=== PATIENT | male | born 1980 | race Caucasian/White ===

== ENCOUNTER 2016-07-04 18:58 | Emergency (ER) | payer OTHER ==
[~2016-07-04] VITALS: Ht 177.8 cm; Wt 99.8 kg
[~2016-07-04 18:58] MED LIST: ADVAIR 250-501 EACH INH; ALBUTEROL SULFAT3 M1 INH; AMOXICILLIN500 MG PO; ATROVENT 0.02%2.5 ML INH; AZITHROMYCIN250 MG PO; PREDNICOT20 MG PO; PREDNISONE 10MG10 M1 PO; PREDNISONE 20MG20 MG PO; PREDNISONE10 MG PO; PROAIR HFA8.5 GM INH; PROTONIX 40MG T40 MG PO; ZITHROMAX Z-PA250 M1 PO
[2016-07-04 19:06] VITALS: BP 176/89
[2016-07-04] MEDS ORDERED: NORCO 5-325 TA1 EACH PO (19:48)
[2016-07-04] MEDS ORDERED: AUGMENTIN 875-1 EACH PO (19:48)
--- NOTE | 2016-07-04 19:48 | ED THROAT/DENTAL COMPLAINT ---
History of Present Illness General Chief Complaint: Sore Throat, Dental Pain Stated Complaint: TOOTH ACHE Source: patient, old records Exam Limitations: no limitations Vital Signs & Intake/Output Vital Signs & Intake/Output Vital Signs Date Time Temp Pulse Resp B/P Pulse O2 O2 Flow FiO2 Ox Delivery Rate 07/04 1906 98.7 74 18 176/89 96 Room Air Room Air Allergies Coded Allergies: MDX - Ibuprofen (IBUPROFEN) (Severe, DIFFICULTY BREATHING 08/21/14) Reconcile Medications Albuterol Sulfate (Proair Hfa) 0.09 MG/Actuation MANDI 2 PUFF INH Q4P PRN ASTHMA (Reported) Albuterol Sulfate 3 ML NEB 3 ML INH Q4HR PRN WHEEZING Amoxicillin/Potassium Clav (Augmentin 875-125 Tablet) 875 MG-125 MG TABLET 1 TAB PO BID DENTAL FLUTICASONE/SALMETEROL (Advair 250-50 Diskus) 250 MCG-50 MCG/DOSE BLST.W.DEV 1 PUF INH BID ASTHMA (Reported) Hydrocodone/Acetaminophen ([place] 5-325 Tablet) 5 MG-325 MG TABLET 1 TAB PO BID PRN BREAKTHROUGH PAIN Triage Note: TRIAGE: 36 Y/O MALE PRESNETS C/O 03/13 RIGHT SIDED DENTAL PAIN. REPORTS PAIN X 3 DAYS - "THE SWELLING IS CREEPING UP MY FACE. I'M SCARED." "I WAS TRYING TO WAIT UNTIL TOMORROW TO GO TO THE DENTIST." Triage Nurses Notes Reviewed? yes Onset: Abrupt Duration: day(s): (2), constant Timing: recent history Injury Environment: home Severity: moderate Severity Numbers: 8 Modifying Factors: Worsens With: eating. Associated Symptoms: denies HPI: 36-year-old with history of 2 day history of right upper dental pain. He states he has a history of a cracked tooth however states that has been aggravating him more so since yesterday. He denies any known injury or trauma he's been taking extra strength Tylenol without improvement. Symptoms are worse with palpation and eating. He states that he has had history of similar pain in the past as resolved on its own. He states since last night he is noticed swelling to his face. He denies change in his voice ear pain congestion fever chills chest pain shortness of breath. There are no other modifying factors or associated symptoms pain is 8 out of 10 in mild to moderate and aching and throbbing Past History Travel History Traveled to [place] past 21 day No Medical History Any Pertinent Medical History? see below for history Respiratory: asthma History of MRSA: No History of VRE: No History of CDIFF: No Pneumonia Vaccine: 06/03/12 Influenza Vaccine: 04/03/13 Tetanus Vaccine: 06/06/13 Surgical History Surgical History: non-contributory Psychosocial History Who do you live with Spouse Services at Home Oxygen What is your primary language Tajik Tobacco Use: Never used ETOH Use: denies use Illicit Drug Use: denies illicit drug use Family History Family History, If Any: MOTHER (HTN, HLD). FH: liver disease Relation not specified for: FH: COPD (chronic obstructive pulmonary disease) FH: myocardial infarction Hx Contributory? No Review of Systems Review of Systems Constitutional: Reports: no symptoms, see HPI. All Other Systems: Reviewed and Negative Comments Review of systems: See HPI, All other systems negative. Constitutional, no chills no fever, no malaise HEENT: No visual changes no sore throat no congestion Cardiovascular: No chest pain , no palpitation Skin, no rashes, no change in skin Respiratory: No dyspnea no cough no sputum GI: No nausea no vomiting, no diarrhea Muscle skeletal: No joint pain, no back pain, no neck pain, Neurologic: No numbness no headache Psych: No stress Heme/endocrine: No bruising no bleeding Immunology: No lymphadenopathy Physical Exam Physical Exam General Appearance: well developed/nourished, no apparent distress, alert, awake Mouth/Throat: dental tenderness Comments: Well-developed well-nourished patient in no apparent distress. Head/Face: Atraumatic, no maxillary/frontal sinus tenderness, minimal right- sidedfacial swelling Eyes: PERRL, EOMI Ear:External auditory canals clear, no erythema, no FB. Nose: atraumatic.Normal inspection Throat: Moist mucous membranes.Pharynx normal. No pharyngeal erythema/exudate seen. No stridor/drooling or assymetry. No swelling or edema. Dental tenderness Poor dentition no uvular displacement no gingival abscess Neck: Supple, no lymphadenopathy, FROM Back: FROM, Nontender Cardiovascular: Regular rate and rhythms no murmurs Respiratory: No respiratory distress. Patient speaking in full complete sentences. Breath sounds clear to auscultation bilaterally: NO W/R/R Extremities: full range of motion Neuro: Alert and oriented x3 Skin: Warm & dry;No appreciable rash on exposed skin Psych: Mood affect normal, normal memory normal judgment. Core Measures ACS in differential dx? No Severe Sepsis Present: No Septic Shock Present: No Progress Differential Diagnosis: carious tooth, epiglottitis, Ludwigs angina, odontogenic abscess, kristine-tonsillar abscess, stomatitis/gingivitis, strep pharyngitis, tooth fracture Plan of Care: advised f/[facility] list. rx for augmentin and norco provided pt speaking in full sentences minimal facial sweling noted, imaging deferred they feel comfortable with plan cleared for dc Departure Departure Time of Disposition: 1945 Disposition: HOME OR SELF CARE Condition: Stable Clinical Impression Primary Impression: Toothache Referrals: NADINE BRAVO,SARAHI (PCP/Family) Referred to [facility] as new patient No Additional Instructions: NORCO FOR BREAKTHROUGH PAIN- THIS IS A NARCOTIC AND WILL MAKE YOU DROWSY. NO DRIVING OR DRINKING ALCOHOL WHILE TAKING. AUGMENTIN DIRECTED. FOLLOW UP WITH DENTIST THIS WEEK. Departure Forms: Customer Survey General Discharge Information Prescriptions: Current Visit Scripts Hydrocodone/Acetaminophen ([place] 5-325 Tablet) 1 TAB PO BID PRN BREAKTHROUGH PAIN #10 TAB Amoxicillin/Potassium Clav (Augmentin 875-125 Tablet) 1 TAB PO BID #14 TAB ED Attending Observation Initial Observation Note: I have seen and personally examined STOUTEVE on 07/04/16 at 1954. I agree with the current emergency department documentation. The disposition (admission or discharge) is uncertain at this time, he needs a period of observation for the following reason(s): The ED Nurse caring for this patient has been personally informed as to what the patient is being observed for.
== END 2016-07-04 20:00 ==
LOC: ERH 18:58
DX: K08.89 Other specified disorders of teeth and supporting structures (principal)

== ENCOUNTER 2016-09-11 16:30 | Emergency (ER) | payer OTHER ==
[~2016-09-11] VITALS: Ht 177.8 cm; Wt 91.2 kg
[~2016-09-11 16:30] MED LIST changes: +AUGMENTIN 875-1 EACH PO; +NORCO 5-325 TA1 EACH PO
--- NOTE | 2016-09-11 17:02 | ED DYSPNEA/ASTHMA COMPLAINT ---
History of Present Illness General Chief Complaint: Dyspnea (COPD, CHF, Other) Stated Complaint: SOB, COUGH, 1 HR Source: patient Exam Limitations: no limitations Vital Signs & Intake/Output Vital Signs & Intake/Output Vital Signs Date Time Temp Pulse Resp B/P Pulse O2 O2 Flow FiO2 Ox Delivery Rate 09/11 1844 96 Nasal 1.0L Cannula 09/11 1840 96.9 88 18 129/74 98 Nasal 1.0L Cannula 09/11 1707 94 Nasal 2.0L Cannula 09/11 1636 97.1 114 24 145/93 94 Room Air Allergies Coded Allergies: ibuprofen (Severe, DIFFICULTY BREATHING 09/11/16) Reconcile Medications Albuterol Sulfate (Proair Hfa) 90 MCG HFA.AER.AD 2 PUF INH Q4H PRN ASTHMA ( Reported) Albuterol Sulfate 2.5 MG/3 ML (0.083 %) VIAL.NEB 1 Vial INH/DARIUS PRN ASTHMA ( Reported) Albuterol Sulfate 2.5 MG/3 ML (0.083 %) VIAL.NEB 1 Vial INH/DARIUS Q4P PRN DYSPNEA Fluticasone/Salmeterol (Advair 250-50 Diskus) 250 MCG-50 MCG/DOSE BLST.W.DEV 1 PUF INH BID ASTHMA (Reported) Levofloxacin (Levaquin) 750 MG TABLET 1 TAB PO DAILY PNEUMONIA Loratadine (Claritin) 10 MG TABLET 1 TAB PO DAILY ALLERGIES (Reported) Methylprednisolone. (Medrol) 4 MG TAB.DS.PK 1 DP PO AD INFLAMMATION 6 on day 1 then reduce by one tablet daily until gone Triage Note: PT TO ED C/O COUGH, CHEST HEAVINESS X 1 HOUR. H/O ASTHMA. USED PROAIR WITH NO RELIEF. RA SATS 945%. PT FEELS LIKE HE CAN'T CATCH HIS BREATH. Triage Nurses Notes Reviewed? yes Onset: Gradual Duration: day(s): (few) Timing: recent history Severity: moderate Activities at Onset: none Associated Symptoms: cough, chest pain, yellow sputum HPI: 36 year old male with hisotry of recently diagnosed asthma after multilobar pneumonia which required admission a few years ago. He reports asthma symptoms over the last few days which has required using his rescue inhlaer multiple times a day. No fever or chills. His sputum turned yellow today. He is a former smoker. Past History Travel History Traveled to [place] past 21 day No Medical History Any Pertinent Medical History? see below for history Respiratory: asthma, pneumonia History of MRSA: No History of VRE: No History of CDIFF: No Pneumonia Vaccine: 06/03/12 Influenza Vaccine: 04/03/13 Tetanus Vaccine: 06/06/13 Surgical History Surgical History: non-contributory Psychosocial History Who do you live with Spouse Services at Home Oxygen What is your primary language Maltese Tobacco Use: Quit >30 days ago ETOH Use: denies use Illicit Drug Use: denies illicit drug use Family History Family History, If Any: MOTHER (HTN, HLD). FH: liver disease Relation not specified for: FH: COPD (chronic obstructive pulmonary disease) FH: myocardial infarction Hx Contributory? No Review of Systems Review of Systems Constitutional: Denies: chills, fever. EENTM: Reports: no symptoms. Respiratory: Reports: cough, short of breath, sputum production. Cardiovascular: Reports: chest pain. Denies: palpitations. GI: Denies: abdominal pain, nausea, vomiting. Genitourinary: Reports: no symptoms. Musculoskeletal: Reports: no symptoms. Skin: Reports: no symptoms. Neurological/Psychological: Reports: no symptoms. Hematologic/Endocrine: Denies: bruising, bleeding, polyuria, polydipsia. Immunologic/Allergic: Denies: splenectomy. All Other Systems: Reviewed and Negative Physical Exam Physical Exam General Appearance: well developed/nourished, alert, awake, moderate distress Head: atraumatic, normal appearance Eyes: Bilateral: normal appearance, PERRL, EOMI. Ears, Nose, Throat: normal pharynx, normal ENT inspection, hearing grossly normal Neck: normal inspection, supple, full range of motion Respiratory: decreased breath sounds, wheezing, respiratory distress Cardiovascular: regular rate/rhythm Peripheral Pulses: 2+ radial (R), 2+ radial (L) Gastrointestinal: normal bowel sounds, soft, non-tender Extremities: normal inspection, normal capillary refill, normal range of motion, no edema Neurologic/Psych: no motor/sensory deficits, awake, alert, oriented x 3 Skin: intact, normal color, warm/dry Core Measures ACS in differential dx? No Severe Sepsis Present: No Septic Shock Present: No Progress Differential Diagnosis: asthma, pulmonary embolism, pneumonia Plan of Care: Orders Procedure Date/time Status RT ED ORDERS 09/11 1835 Active RAPID VIRAL INFLUENZA A 03/11 1701 Complete Microbiology 09/11 1729 NASOPHARYN: Influenza Virus A & B Rapid Smear - COMP cxr, duoneb, prednisone ordered. patient feeling better after prednisone, 2 duonebs. cxr shows some chronic changes. patient with risk for developing pneumonia. ambulatory with sat 95% which is self reported baseline. will take levaquin and follow up with pulmonary this week. D/W Dr. Vegas. (GERRY BRAVO,JESSIE) Diagnostic Imaging: Viewed by Me: Radiology Read. Discussed w/RAD: Radiology Read. CXR Impression: PATIENT: EVE STOUT PRESENT AGE: 36 PATIENT ACCOUNT NO: [id number] : 82 LOCATION: [facility] ORDERING PHYSICIAN: JESSIE GARRETT MD SERVICE DATE: 09/11/16 EXAM TYPE: RAD - XRY -CHEST XRAY, PA AND LATERAL EXAMINATION: XR CHEST CLINICAL INFORMATION: Cough and shortness of breath for 3 days. Yellow sputum. COMPARISON: Chest x-ray dated 10/17/2014, 08/21/2014. TECHNIQUE: PA and lateral views of the chest were obtained. FINDINGS: The cardiomediastinal silhouette is within normal limits in size. Slight prominence of the pulmonary reymundo is again seen, unchanged. Lungs bilaterally are symmetrically hyperinflated with flattening of the hemidiaphragms, increase in retrosternal airspace and thickening of the central airways, consistent with obstructive lung disease. There are very subtle increased reticular densities seen on the lateral view in the lower lobe, suspicious for subtle pneumonitis. This is, however, poorly localized on the frontal view. Remainder of lungs unremarkable. No effusion or pneumothorax is seen. Bony structures are unremarkable. IMPRESSION: Obstructive lung disease with subtle reticular densities seen in the lower lobe on lateral view only, increased in density compared to 08/21/2014, suspicious for subtle pneumonitis in the clinical setting provided. Follow-up PA and lateral view of the chest post treatment is recommended to document resolution of findings. DICTATED BY: KATLYN CRAWFORD MD DATE/TIME DICTATED:09/11/161801 SULFONATION EQUIPMENT OPERATOR:RODNEY DATE/TIME TRANSCRIBED:09/11/161801 CONFIDENTIAL, DO NOT COPY WITHOUT APPROPRIATE AUTHORIZATION. <Electronically signed in Other Vendor System> SIGNED BY: KATLYN CRAWFORD MD 09/11/16 1810 Initial ED EKG: none Departure Departure Time of Disposition: 1911 Disposition: HOME OR SELF CARE Condition: Stable Clinical Impression Primary Impression: Asthma exacerbation Referrals: SARAHI MCCOY MD (PCP/Family) Additional Instructions: Take the medrol dose pack, levaquin and albuterol nebulizer as directed. Follow up with Dr. Vegas in the office early this week. Return to the ER over the next two days for any worsening symptoms. Departure Forms: Customer Survey General Discharge Information Prescriptions: Current Visit Scripts Methylprednisolone. (Medrol) 1 DP PO AD #1 DP 6 on day 1 then reduce by one tablet daily until gone Levofloxacin (Levaquin) 1 TAB PO DAILY #7 TAB Albuterol Sulfate 1 Vial INH/DARIUS Q4P PRN DYSPNEA #1 BOX Critical Care Note Critical Care Note Critical Care Time: non-applicable
[2016-09-11] MEDS ORDERED: ALBUTEROL2.5 MG/3 M INH/SOL ×2 (17:29→19:14)
[2016-09-11] MEDS ORDERED: CLARITIN10 M1 PO (17:30)
--- NOTE | 2016-09-11 18:10 | RADIOLOGY REPORT ---
EXAMINATION: XR CHEST CLINICAL INFORMATION: Cough and shortness of breath for 3 days. Yellow sputum. COMPARISON: Chest x-ray dated 10/17/2014, 08/21/2014. TECHNIQUE: PA and lateral views of the chest were obtained. FINDINGS: The cardiomediastinal silhouette is within normal limits in size. Slight prominence of the pulmonary reymundo is again seen, unchanged. Lungs bilaterally are symmetrically hyperinflated with flattening of the hemidiaphragms, increase in retrosternal airspace and thickening of the central airways, consistent with obstructive lung disease. There are very subtle increased reticular densities seen on the lateral view in the lower lobe, suspicious for subtle pneumonitis. This is, however, poorly localized on the frontal view. Remainder of lungs unremarkable. No effusion or pneumothorax is seen. Bony structures are unremarkable. IMPRESSION: Obstructive lung disease with subtle reticular densities seen in the lower lobe on lateral view only, increased in density compared to 08/21/2014, suspicious for subtle pneumonitis in the clinical setting provided. Follow-up PA and lateral view of the chest post treatment is recommended to document resolution of findings.
[2016-09-11 18:41] VITALS: BP 129/74
[2016-09-11] MEDS ORDERED: MEDROL4 M2 PO (19:14)
[2016-09-11] MEDS ORDERED: LEVAQUIN750 M1 PO (19:14)
== END 2016-09-11 19:19 ==
LOC: ERH 16:30
DX: J45.901 Unspecified asthma with (acute) exacerbation (principal); R07.89 Other chest pain; Z87.891 Personal history of nicotine dependence
CPT/HCPCS: 1263; 1395; 87804; 87804-59

== ENCOUNTER 2017-10-12 01:55 | Emergency (ER) | payer OTHER ==
[~2017-10-12] VITALS: Ht 177.8 cm; Wt 102.1 kg
[~2017-10-12 01:55] MED LIST changes: +ALBUTEROL2.5 MG/3 M INH/SOL; +CLARITIN10 M1 PO; +LEVAQUIN750 M1 PO; +MEDROL4 M2 PO; +PREDNISONE50 M1 PO
--- NOTE | 2017-10-12 02:15 | ED DYSPNEA/ASTHMA COMPLAINT ---
History of Present Illness General Chief Complaint: Wheezing/Asthma Stated Complaint: HX ASTHMA C/O DIFF BREATHING 02 SAT 91% Source: patient Exam Limitations: no limitations Vital Signs & Intake/Output Vital Signs & Intake/Output Vital Signs Date Time Temp Pulse Resp B/P B/P Pulse O2 O2 Flow FiO2 Mean Ox Delivery Rate 10/12 0221 92 10/12 0205 97.7 98 20 153/97 91 Allergies Coded Allergies: ibuprofen (Severe, DIFFICULTY BREATHING 09/11/16) Reconcile Medications Albuterol Sulfate (Proair Hfa) 90 MCG HFA.AER.AD 2 PUF INH Q4H PRN ASTHMA ( Reported) Albuterol Sulfate 2.5 MG/3 ML (0.083 %) VIAL.NEB 1 Vial INH/DARIUS PRN ASTHMA ( Reported) Albuterol Sulfate 2.5 MG/3 ML (0.083 %) VIAL.NEB 1 Vial INH/DARIUS Q4P PRN DYSPNEA Albuterol Sulfate (Ventolin Hfa) 90 MCG HFA.AER.AD 2 PUF INH Q4-6 PRN PRN wheeze Amoxicillin/Potassium Clav (Augmentin 875-125 Tablet) 875 MG-125 MG TABLET 1 TAB PO BID bronchitis Amoxicillin/Potassium Clav (Augmentin 875-125 Tablet) 875 MG-125 MG TABLET 1 TAB PO BID bronchitis Fluticasone/Salmeterol (Advair 250-50 Diskus) 250 MCG-50 MCG/DOSE BLST.W.DEV 1 PUF INH BID ASTHMA (Reported) Levofloxacin (Levaquin) 750 MG TABLET 1 TAB PO DAILY PNEUMONIA Loratadine (Claritin) 10 MG TABLET 1 TAB PO DAILY ALLERGIES (Reported) Methylprednisolone. (Medrol) 4 MG TAB.DS.PK 1 DP PO AD INFLAMMATION 6 on day 1 then reduce by one tablet daily until gone Prednisone 50 MG TABLET 1 TAB PO DAILY asthma Prednisone 50 MG TABLET 1 TAB PO DAILY bronchitis Triage Nurses Notes Reviewed? yes Onset: Gradual Duration: day(s): Timing: recent history Severity: moderate Activities at Onset: none Prior Episodes/Possible Cause: occasional episodes Modifying Factors: Improves With: other (slightly better w/albuterol). Associated Symptoms: cough, wheezing HPI: 37 yo gentleman h/o asthma and cigarette smoking presents with several hours of "real bad" wheezing, associated with phlegm. No fever, chest pain, diaphoresis. He is otherwise well. Past History Travel History Traveled to [place] past 21 day No Medical History Any Pertinent Medical History? see below for history Neurological: NONE EENT: NONE Cardiovascular: NONE Respiratory: asthma, pneumonia Gastrointestinal: NONE Hepatic: NONE Renal: NONE Musculoskeletal: NONE Psychiatric: NONE Endocrine: NONE Blood Disorders: NONE Cancer(s): NONE History of MRSA: No History of VRE: No History of CDIFF: No Tetanus Vaccine: 06/06/13 Surgical History Surgical History: non-contributory Psychosocial History Who do you live with Spouse Services at Home Oxygen What is your primary language Icelandic Family History Family History, If Any: MOTHER (HTN, HLD). FH: liver disease Relation not specified for: FH: COPD (chronic obstructive pulmonary disease) FH: myocardial infarction Hx Contributory? No Review of Systems Review of Systems Constitutional: Reports: no symptoms. EENTM: Reports: no symptoms. Respiratory: Reports: no symptoms. Cardiovascular: Reports: no symptoms. GI: Reports: no symptoms. Genitourinary: Reports: no symptoms. Musculoskeletal: Reports: no symptoms. Skin: Reports: no symptoms. Neurological/Psychological: Reports: no symptoms. Hematologic/Endocrine: Reports: no symptoms. Immunologic/Allergic: Reports: no symptoms. All Other Systems: Reviewed and Negative Physical Exam Physical Exam General Appearance: well developed/nourished, mild distress Head: atraumatic, normal appearance Eyes: Bilateral: normal appearance. Ears, Nose, Throat: normal pharynx, normal ENT inspection Neck: normal inspection, supple, full range of motion Respiratory: wheezing, prolonged expiratory phase Cardiovascular: regular rate/rhythm Gastrointestinal: normal bowel sounds, soft, non-tender, no organomegaly Extremities: normal inspection, normal capillary refill, normal range of motion, no edema Neurologic/Psych: no motor/sensory deficits, awake, alert, oriented x 3 Skin: intact, normal color, warm/dry Core Measures ACS in differential dx? No CVA/TIA Diagnosis No Sepsis Present: No Sepsis Focused Exam Completed? No Progress Differential Diagnosis: asthma, bronchitis Plan of Care: Current Medications Sig/Danial Start time Last Medication Dose Stop Time Status Admin Albuterol Sulfate 3 ML ONCE ONE 10/12 229 AC (Proventil) 10/12 230 Ipratropium [place] 2.5 ML ONCE ONE 10/12 229 AC (Atrovent) 10/12 230 Initial ED EKG: none Departure Departure Disposition: HOME OR SELF CARE Condition: Stable Clinical Impression Primary Impression: Asthma exacerbation Secondary Impressions: Bronchitis Referrals: Patient Has No Primary Care Dr (PCP/Family) Departure Forms: Customer Survey General Discharge Information Prescriptions: Current Visit Scripts Amoxicillin/Potassium Clav (Augmentin 875-125 Tablet) 1 TAB PO BID #20 TAB Prednisone 1 TAB PO DAILY #4 TAB Albuterol Sulfate (Ventolin Hfa) 2 PUF INH Q4-6 PRN PRN wheeze #1 INHAL Ref 2 Comments 10/12/17, 3:23am... pt feeling better after neb.... pt safe for discharge with augmentin/steroind/albuterol... close follow up advised. Critical Care Note Critical Care Note Critical Care Time: non-applicable
[2017-10-12] MEDS ORDERED: AUGMENTIN 875-1 EACH PO (02:20)
[2017-10-12] MEDS ORDERED: PREDNISONE50 M1 PO (02:20)
[2017-10-12] MEDS ORDERED: VENTOLIN HFA18 GM INH (02:20)
[2017-10-12 03:33] VITALS: BP 148/92
== END 2017-10-12 03:34 ==
LOC: ERH 01:55
DX: J45.901 Unspecified asthma with (acute) exacerbation (principal); F17.210 Nicotine dependence, cigarettes, uncomplicated
CPT/HCPCS: 1263; 1395; J3490